=== PATIENT | female | born 1975 | race Caucasian/White ===

== ENCOUNTER 2017-05-26 03:22 | Emergency (ER) | payer MEDICAID, OTHER ==
[~2017-05-26] VITALS: Ht 149.9 cm; Wt 45.5 kg
[~2017-05-26 03:22] MED LIST: BACL10TA PO; CYCL10 PO; VICOT PO
[2017-05-26 03:48] LABS: GLUCOSE,POINT OF CARE 103 MG/DL (70-110)
[2017-05-26] MEDS ORDERED: GABA-533 PO (03:49)
[2017-05-26] MEDS ORDERED: TOPI25 PO (03:49)
[2017-05-26] MEDS ORDERED: SERT50TA12 PO (03:49)
[2017-05-26] MEDS ORDERED: BENZ-51 PO (03:49)
[2017-05-26] MEDS ORDERED: BACL10TA PO (03:49)
[2017-05-26 07:10] VITALS: BP 121/76
== END 2017-05-26 08:05 | disposition home or self-care (01) ==
LOC: EMS 03:23
DX: S93.401A Sprain of unspecified ligament of right ankle, initial encounter (principal); F17.210 Nicotine dependence, cigarettes, uncomplicated; G89.29 Other chronic pain; Z91.018 Allergy to other foods; X58.XXXA Exposure to other specified factors, initial encounter; Y93.89 Activity, other specified; Y92.89 Other specified places as the place of occurrence of the external cause; Y99.8 Other external cause status
CPT/HCPCS: 29515; 82962; 99284; 99285